=== PATIENT | female | born 2000 | race Hispanic/Latino ===

== ENCOUNTER 2018-12-23 04:46 | Emergency (ER) | payer SELFPAY ==
[~2018-12-23] VITALS: Ht 154.9 cm; Wt 63.5 kg
[2018-12-23 05:17] LABS: BASOPHILS % 0.4 % (0.0-1.0); HEMATOCRIT 40.3 % (34.2-44.1); LYMPHOCYTES # (AUTO) 2.4 (1.0-3.2); LYMPHOCYTES % 31.2 % (18.0-39.1); MEAN CORPUSCULAR HEMOGLOBIN 32.3 pg (28-32); MEAN CORPUSCULAR HGB CONC 37.2 g/dL (31-35); MEAN CORPUSCULAR VOLUME 86.7 fL (81-99); MONOCYTES # (AUTO) 0.4 (0.2-0.8); MONOCYTES % 4.5 % (4.4-11.3); NEUTROPHILS % 63.4 % (38.7-80.0); PLATELET COUNT 308 x10e3/uL (140-360); RED BLOOD COUNT 4.65 x10e6/uL (3.6-5.1); RED CELL DISTRIBUTION WIDTH 11.9 % (11.7-14.4)
[2018-12-23 05:20] LABS: AMPHETAMINES SCREEN,URINE NEGATIVE (NEGATIVE); BENZODIAZEPINES SCREEN,URINE NEGATIVE (NEGATIVE); BILIRUBIN,URINE NEGATIVE (NEGATIVE); CLARITY,URINE CLEAR (CLEAR); COLOR,URINE YELLOW (YELLOW); KETONES,URINE NEGATIVE (NEGATIVE); LEUKOCYTE ESTERASE ,URINE NEGATIVE (NEGATIVE); NITRITE,URINE NEGATIVE (NEGATIVE); PHENCYCLIDINE SCREEN,URINE NEGATIVE (NEGATIVE); PROTEIN,URINE DIPSTICK NEGATIVE (NEGATIVE); URINE UROBILINOGEN 0.2 mg/dL (0.2 - 1)
[2018-12-23 05:30] LABS: EPITHELIAL CELLS,URINE FEW /LPF
--- NOTE | 2018-12-23 05:50 | NUR ---
BLOOD DRAWN FOR HPD WITH PATIENTS CONSENT FOR DRUG AND ALCOHOL ANALYSIS.
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
[2018-12-23] MEDS ORDERED: SODIUM CHLORIDE 0.9% 50ML 50 ML ONE (05:52)
[2018-12-23] MEDS ORDERED: IOPAMIDOL 370 MG/ML 200 ML INFUS..BTL INJ ONE (05:52)
[2018-12-23 05:54] LABS: ALANINE AMINOTRANSFERASE 11 IU/L (0-55); ALBUMIN 4.8 g/dL (3.5-5.0); ALBUMIN/GLOBULIN RATIO 1.5 (0.8-2.0); ALKALINE PHOSPHATASE 72 IU/L (40-150); ANION GAP 17.4 mmol/L (8-16); BLOOD UREA NITROGEN 9 mg/dL (7-26); BUN/CREATININE RATIO 10 (6-25); CALCIUM 8.8 mg/dL (8.4-10.2); CARBON DIOXIDE 21 mmol/L (22-29); CHLORIDE 106 mmol/L (98-107); CREATININE, SERUM 0.87 mg/dL (0.57-1.11); EST GLOMERULAR FILTRATION RATE > 60 ML/MIN (60-); GLUCOSE 114 mg/dL (74-118); POTASSIUM 3.4 mmol/L (3.5-5.1); SODIUM 141 mmol/L (136-145)
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
--- NOTE | 2018-12-23 07:06 | NUR ---
WALKING ROUNDS WITH RUPA SANDERS RN
[2018-12-23 07:17] VITALS: BP 98/52
== END 2018-12-23 07:52 | disposition home or self-care (01) ==
LOC: ER 04:46
DX: F10.129 Alcohol abuse with intoxication, unspecified (principal); V43.52XA Car driver injured in collision with other type car in traffic accident, initial encounter; Y92.488 Other paved roadways as the place of occurrence of the external cause
CPT/HCPCS: 36415; 70450; 71260; 72125; 74177; 80053; 80307; 80320; 81001; 81025; 85025; 99284; Q9967